=== PATIENT | male | born 1985 | race Caucasian/White ===

== ENCOUNTER 2016-12-29 10:06 | Emergency (ER) | payer OTHER ==
[~2016-12-29] VITALS: Ht 170.2 cm; Wt 98.0 kg
[2016-12-29 11:27] LABS: BASOPHIL % 0.3 % (0-2); PLATELET COUNT 244 x10^3mcL (130-400); RED CELL DISTRIBUTION WIDTH 12.1 % (11.5-14.5)
[2016-12-29 11:29] LABS: CARBON DIOXIDE 29.1 mmol/L (21-32); CHLORIDE SERUM 106 mmol/L (98-107); CREATININE SERUM 1.2 mg/dL (0.7-1.3); GFR1 > 60 mL/min; GLUCOSE SERUM 113 mg/dL (74-106); POTASSIUM SERUM 3.6 mmol/L (3.5-5.1); SODIUM SERUM 138 mmol/L (136-145)
[2016-12-29 11:33] LABS: ALBUMIN 4.1 g/dL (3.4-5.0); ALKALINE PHOSPHATASE 101 U/L (46-116); ALT/SGPT 40 U/L (16-63); AMYLASE 35 U/L (25-115); AST/SGOT 20 U/L (15-37); BILIRUBIN TOTAL 0.8 mg/dL (0.20-1.00); LIPASE 125 IU/L (73-393); TOTAL PROTEIN, SERUM 7.3 g/dL (6.4-8.2)
[2016-12-29 11:55] LABS: UA SPECIFIC GRAVITY 1.025 (1.005-1.035); microscopic required? YES; urine erythrocyte 3+ (NEGATIVE)
[2016-12-29 12:12] LABS: AMPHETAMINE QUAL UR POSITIVE (NEG <=1000)
[2016-12-29 13:37] VITALS: BP 121/68
== END 2016-12-29 13:38 | disposition home or self-care (01) ==
LOC: ED 10:06
PROVIDERS: Emergency Medicine
DX: N23 Unspecified renal colic (principal); F15.10 Other stimulant abuse, uncomplicated
CPT/HCPCS: 83880; J2405; J3010; J7030

== ENCOUNTER 2018-09-11 19:21 | Emergency (ER) | payer OTHER ==
[~2018-09-11] VITALS: Ht 170.2 cm; Wt 98.4 kg
[2018-09-11 19:32] VITALS: Ht 170.2 cm; Wt 98.4 kg
[2018-09-11 21:18] LABS: BASOPHIL % 0.4 % (0-2); PLATELET COUNT 269 x10^3mcL (130-400); RED CELL DISTRIBUTION WIDTH 12.4 % (11.5-14.5)
[2018-09-11 21:21] LABS: UA SPECIFIC GRAVITY 1.025 (1.005-1.035); microscopic required? YES; urine erythrocyte 3+ (NEGATIVE)
[2018-09-11 21:24] LABS: CALCIUM 8.5 mg/dL (8.5-10.1); CHLORIDE SERUM 105 mmol/L (98-107); CREATININE SERUM 1.1 mg/dL (0.7-1.3); GFR1 > 60 mL/min; GLUCOSE SERUM 114 mg/dL (74-106); POTASSIUM SERUM 3.1 mmol/L (3.5-5.1); SODIUM SERUM 142 mmol/L (136-145)
[2018-09-11 23:27] VITALS: BP 138/87
== END 2018-09-11 23:27 | disposition home or self-care (01) ==
LOC: ED 19:21
PROVIDERS: Emergency Medicine
DX: N20.1 Calculus of ureter (principal); Z87.442 Personal history of urinary calculi; E87.6 Hypokalemia; R33.9 Retention of urine, unspecified
CPT/HCPCS: J1885; J2405; J3010; J7030

== ENCOUNTER 2020-02-01 09:19 | Emergency (ER) | payer OTHER ==
[~2020-02-01] VITALS: Ht 170.2 cm; Wt 105.2 kg
[2020-02-01 09:29] VITALS: Ht 170.2 cm; Wt 105.2 kg
[2020-02-01 10:15] LABS: BASOPHIL % 0.2 % (0-2); PLATELET COUNT 228 x10^3mcL (130-400); RED CELL DISTRIBUTION WIDTH 12.6 % (11.5-14.5)
[2020-02-01 10:18] LABS: CALCIUM 8.8 mg/dL (8.5-10.1); CARBON DIOXIDE 26.6 mmol/L (21-32); CHLORIDE SERUM 102 mmol/L (98-107); GFR1 > 60 mL/min; GLUCOSE SERUM 102 mg/dL (74-106); POTASSIUM SERUM 3.7 mmol/L (3.5-5.1); SODIUM SERUM 135 mmol/L (136-145)
[2020-02-01 10:21] LABS: ALBUMIN 3.7 g/dL (3.4-5.0); ALKALINE PHOSPHATASE 142 U/L (46-116); ALT/SGPT 109 U/L (16-63); AST/SGOT 39 U/L (15-37); BILIRUBIN TOTAL 0.9 mg/dL (0.20-1.00); LIPASE 72 IU/L (73-393)
[2020-02-01 11:28] VITALS: BP 109/64
== END 2020-02-01 11:28 | disposition home or self-care (01) ==
LOC: ED 09:19
PROVIDERS: Emergency Medicine
DX: N23 Unspecified renal colic (principal); Z87.442 Personal history of urinary calculi
CPT/HCPCS: J1885; J2405; J7030

== ENCOUNTER 2020-06-21 00:52 | Emergency (ER) | payer OTHER ==
[~2020-06-21] VITALS: Ht 167.6 cm; Wt 106.6 kg
[2020-06-21 01:05] VITALS: Ht 167.6 cm; Wt 106.6 kg
[2020-06-21 02:36] LABS: microscopic required? YES; urine erythrocyte 3+ (NEGATIVE)
[2020-06-21 02:39] LABS: BASOPHIL % 0.4 % (0.2-1.5); PLATELET COUNT 228 x10^3mcL (152-348); RED CELL DISTRIBUTION WIDTH 12.6 % (12.1-16.2)
[2020-06-21 02:44] LABS: CALCIUM 9.2 mg/dL (8.5-10.1); CHLORIDE SERUM 102 mmol/L (98-107); CREATININE SERUM 1.1 mg/dL (0.7-1.3); GFR1 > 60 mL/min; GLUCOSE SERUM 112 mg/dL (74-106); POTASSIUM SERUM 3.6 mmol/L (3.5-5.1); SODIUM SERUM 138 mmol/L (136-145)
[2020-06-21 02:49] LABS: ALKALINE PHOSPHATASE 112 U/L (46-116); ALT/SGPT 97 U/L (16-63); AST/SGOT 32 U/L (15-37); BILIRUBIN TOTAL 0.44 mg/dL (0.20-1.00); TOTAL PROTEIN, SERUM 7.2 g/dL (6.4-8.2)
[2020-06-21 05:57] VITALS: BP 125/85
== END 2020-06-21 05:57 | disposition home or self-care (01) ==
LOC: ED 00:52
PROVIDERS: Emergency Medicine
DX: N20.0 Calculus of kidney (principal); Z87.442 Personal history of urinary calculi
CPT/HCPCS: J1885; J2405; J3010; J7030